=== PATIENT | male | born 1990 | race Two or more races ===

== ENCOUNTER 2017-07-31 11:50 | Outpatient (CLI) | payer BC ==
[2017-07-31 12:44] LABS: BASOPHILS % (AUTO) 0.6 % (0.0-2.0); EOSINOPHILS # (AUTO) 0.1 /CMM (0.0-0.7); EOSINOPHILS % (AUTO) 1.7 % (0.0-6.0); HEMATOCRIT 45 % (39-51); HEMOGLOBIN 15.3 g/dL (13.5-17.5); LYMPHOCYTES # (AUTO) 2.7 /CMM (0.8-4.8); MEAN CORPUSCULAR HEMOGLOBIN 28 PG (26.0-33.0); MEAN CORPUSCULAR HGB CONC 34 g/dl (31.0-36.0); MEAN CORPUSCULAR VOLUME 83 fL (80-96); MONOCYTES # (AUTO) 0.5 /CMM (0.1-1.30); MONOCYTES % (AUTO) 7.1 % (2.0-12.0); NEUTROPHILS # (AUTO) 3.7 /CMM (1.8-8.9); NEUTROPHILS % (AUTO) 52.6 % (43.0-81.0); PLATELET COUNT (AUTO) 267 /CMM (150-450); RDW COEFFICIENT OF VARIATION 13.4 (11.5-15.0); RED BLOOD CELL COUNT(AUTO) 5.44 MIL/uL (4.5-6.0)
[2017-07-31 12:54] LABS: ALBUMIN 4.1 g/dL (3.4-5.0); APPEARANCE,URINE CLEAR (CLEAR); BILIRUBIN,TOTAL 0.9 mg/dL (0.2-1.0); BILIRUBIN,URINE NEGATIVE (NEGATIVE); BLOOD, URINE NEGATIVE Ery/uL (NEGATIVE); CALCIUM, SERUM 9.2 mg/dL (8.5-10.1); COLOR,URINE YELLOW (YELLOW); KETONES,URINE NEGATIVE (NEGATIVE); LEUKOCYTE ESTERASE ,URINE NEGATIVE (NEGATIVE); NITRITE, URINE NEGATIVE (NEGATIVE); POTASSIUM 3.7 mmol/L (3.5-5.1); PROTEIN,URINE NEGATIVE (NEGATIVE); TOTAL PROTEIN, SERUM 8.4 g/dL (6.4-8.2); UGLUCOSE NEGATIVE (NEGATIVE); UROBILINOGEN,URINE 0.2 EU/dL (0.2)
[2017-07-31 13:03] LABS: THYROID STIMULATING HORMONE 1.531 uIU/mL (0.358-3.74)
== END 2017-07-31 23:59 | disposition home or self-care (01) ==
LOC: LAB 11:50
DX: E78.5 Hyperlipidemia, unspecified (principal); K21.9 Gastro-esophageal reflux disease without esophagitis; R53.83 Other fatigue; R53.81 Other malaise
CPT/HCPCS: 36415; 80053-TC; 80061-TC; 81000-TC; 84439-TC; 84443-TC; 84481; 85025-TC

== ENCOUNTER 2017-10-26 11:30 | Outpatient (CLI) | payer BC | END 2017-10-26 23:59 | disposition home or self-care (01) | LOC: LAB 11:30 | DX: M47.894 Other spondylosis, thoracic region (principal) | CPT/HCPCS: 36415; 71046; 86694; 86695; 87491; 87591 ==

== ENCOUNTER 2017-11-09 10:06 | Outpatient (CLI) | payer BC | END 2017-11-09 23:59 | disposition home or self-care (01) | LOC: US 10:06 | DX: K76.0 Fatty (change of) liver, not elsewhere classified (principal) | CPT/HCPCS: 76700-TC ==

== ENCOUNTER 2018-01-19 13:43 | Outpatient (CLI) | payer BC ==
[2018-01-19 15:18] LABS: ALBUMIN 4.1 g/dL (3.4-5.0); CREATININE 0.9 mg/dL (0.6-1.3); POTASSIUM 3.9 mmol/L (3.5-5.1); TOTAL PROTEIN, SERUM 7.8 g/dL (6.4-8.2)
[2018-01-19] MEDS ORDERED: LIDOCAINE /MPF 1% VIAL 5 ML VIAL ONE (17:00)
[2018-01-19] MEDS ORDERED: LIDOCAINE 1%-EPI 1:100,000 20 ML VIAL ONE (18:10)
== END 2018-01-19 23:59 | disposition home or self-care (01) ==
LOC: LAB 13:43
DX: I10 Essential (primary) hypertension (principal); K21.9 Gastro-esophageal reflux disease without esophagitis
CPT/HCPCS: 36415; 80053; 80061; A6402; A6403 ×2; J3490 ×2

== ENCOUNTER 2018-08-30 09:59 | Outpatient (CLI) | payer BC ==
[2018-08-30 10:52] LABS: APPEARANCE,URINE CLEAR (CLEAR); BILIRUBIN,URINE NEGATIVE (NEGATIVE); BLOOD, URINE NEGATIVE Ery/uL (NEGATIVE); COLOR,URINE YELLOW (YELLOW); KETONES,URINE 2+ (NEGATIVE); PH,URINE 5.5 (5.0-8.0); PROTEIN,URINE NEGATIVE (NEGATIVE); UGLUCOSE NEGATIVE (NEGATIVE); UROBILINOGEN,URINE 0.2 EU/dL (0.2)
[2018-08-30 10:53] LABS: LEUKOCYTE ESTERASE ,URINE NEGATIVE (NEGATIVE); NITRITE, URINE NEGATIVE (NEGATIVE)
[2018-08-30 10:54] LABS: BASOPHILS # (AUTO) 0.1 /CMM (0.0-0.2); BASOPHILS % (AUTO) 0.9 % (0.0-2.0); EOSINOPHILS % (AUTO) 0.9 % (0.0-6.0); HEMATOCRIT 45 % (39-51); HEMOGLOBIN 15.5 g/dL (13.5-17.5); LYMPHOCYTES # (AUTO) 2.1 /CMM (0.8-4.8); LYMPHOCYTES % (AUTO) 33.5 % (20.0-44.0); MEAN CORPUSCULAR HGB CONC 35 g/dl (31.0-36.0); MEAN CORPUSCULAR VOLUME 87 fL (80-96); MONOCYTES # (AUTO) 0.4 /CMM (0.1-1.30); MONOCYTES % (AUTO) 6.5 % (2.0-12.0); NEUTROPHILS # (AUTO) 3.6 /CMM (1.8-8.9); NEUTROPHILS % (AUTO) 58.2 % (43.0-81.0); PLATELET COUNT (AUTO) 263 /CMM (150-450); RED BLOOD CELL COUNT(AUTO) 5.12 MIL/uL (4.5-6.0); WHITE BLOOD COUNT (AUTO) 6.3 K/uL (4.3-11.0)
[2018-08-30 10:59] LABS: ALBUMIN 4.6 g/dL (3.4-5.0); BILIRUBIN,TOTAL 1.7 mg/dL (0.2-1.0); CALCIUM, SERUM 9.5 mg/dL (8.5-10.1); CREATININE 1.1 mg/dL (0.6-1.3); POTASSIUM 4.6 mmol/L (3.5-5.1); TOTAL PROTEIN, SERUM 8.6 g/dL (6.4-8.2)
[2018-08-30 11:02] LABS: BACTERIA,URINE None seen /HPF (None Seen); RBC,URINE NONE SEEN /HPF (0-2); SQUAMOUS EPITHELIAL CELL,UR Few /HPF (None Seen); WBC,URINE NONE SEEN /HPF (0-3)
== END 2018-08-30 23:59 | disposition home or self-care (01) ==
LOC: US 09:59
DX: N20.0 Calculus of kidney (principal); I10 Essential (primary) hypertension; R94.5 Abnormal results of liver function studies
CPT/HCPCS: 36415; 76770-TC; 80053-TC; 81000-TC; 85025-TC

== ENCOUNTER 2019-06-29 22:11 | Emergency (ER) | payer BC, OTHER ==
[~2019-06-29] VITALS: Ht 170.2 cm; Wt 99.8 kg
[2019-06-29 22:15] VITALS: BP 167/96
[2019-06-29] MEDS ORDERED: FLUORESCEIN SODIUM OPHTH 1 EA STRIP ONE (22:51)
[2019-06-29] MEDS ORDERED: FLUORESCEIN SODIUM OPHTH 1 EA STRIP OP ONE (23:00)
[2019-06-29] MEDS ORDERED: TETRACAINE HCL 0.5% OPHTALMIC 15 ML BOTTLE OP ONE (23:00)
== END 2019-06-29 23:07 | disposition home or self-care (01) ==
LOC: ER 22:14
DX: H10.89 Other conjunctivitis (principal); I10 Essential (primary) hypertension; F10.10 Alcohol abuse, uncomplicated; Y90.9 Presence of alcohol in blood, level not specified

== ENCOUNTER 2020-12-04 16:16 | Emergency (ER) | payer BC, OTHER ==
[~2020-12-04] VITALS: Ht 170.2 cm; Wt 113.4 kg
[2020-12-04 16:20] VITALS: BP 158/92
[2020-12-04] MEDS ORDERED: ERYT3.5O9 EACHEYE (16:43)
[2020-12-04] MEDS ORDERED: POLY10DR OP (16:43)
== END 2020-12-04 16:57 | disposition home or self-care (01) ==
LOC: ER 16:17
DX: H10.9 Unspecified conjunctivitis (principal); I10 Essential (primary) hypertension; Z79.899 Other long term (current) drug therapy